=== PATIENT | female | born 1995 | race African-American/Black ===

== ENCOUNTER 2023-09-20 15:39 | Emergency (ER) | payer SELFPAY ==
[~2023-09-20] VITALS: Ht 167.6 cm; Wt 123.0 kg
[2023-09-20 15:47] VITALS: PULSE 70; RESP 18
[2023-09-20 15:54] VITALS: BP 160/82; TEMP 97.9; O2SAT 99
== END 2023-09-20 17:12 | disposition left against medical advice (07) ==
LOC: ER 15:39
DX: R11.10 Vomiting, unspecified (principal); Z53.21 Procedure and treatment not carried out due to patient leaving prior to being seen by health care provider
CPT/HCPCS: 81025; 99281